=== PATIENT | male | born 1950 | race Caucasian/White ===

== ENCOUNTER 2023-09-15 12:17 | Inpatient (IN) | payer MEDICARE, BC ==
[~2023-09-15] VITALS: Ht 170.2 cm; Wt 90.7 kg
[2023-09-15] MEDS ORDERED: IV NS 0.9% 250 ML IV ONE (12:32)
[2023-09-15] MEDS ORDERED: IOHEXOL-350 100 ML VIAL IV ONE (12:32)
[2023-09-15 12:49] LABS: BASOPHILS # (AUTO) 0.1 K/uL (0.0-0.2); BASOPHILS % (AUTO) 1.1 % (0.0-2.0); EOSINOPHILS # (AUTO) 0.2 K/uL (0.0-0.7); EOSINOPHILS % (AUTO) 2.2 % (0.0-6.0); HEMATOCRIT 40 % (39-51); HEMOGLOBIN 14.2 g/dL (13.5-17.5); LYMPHOCYTES # (AUTO) 0.7 K/uL (0.8-4.8); LYMPHOCYTES % (AUTO) 9.7 % (20.0-44.0); MEAN CORPUSCULAR HEMOGLOBIN 33 PG (26.0-33.0); MEAN CORPUSCULAR HGB CONC 35 g/dl (31.0-36.0); MEAN CORPUSCULAR VOLUME 92 fL (80-96); MONOCYTES # (AUTO) 0.7 K/uL (0.1-1.30); MONOCYTES % (AUTO) 9.9 % (2.0-12.0); NEUTROPHILS # (AUTO) 5.4 K/uL (1.8-8.9); NEUTROPHILS % (AUTO) 77.1 % (43.0-81.0); PLATELET COUNT (AUTO) 235 K/uL (150-450); RED BLOOD CELL COUNT(AUTO) 4.38 MIL/uL (4.5-6.0); RED CELL DISTRIBUTION WIDTH 13.3 % (11.5-15.0)
[2023-09-15 12:58] LABS: CALCIUM, SERUM 8.6 mg/dL (8.5-10.1); CARBON DIOXIDE 30 mmol/L (21-32); CHLORIDE 89 mmol/L (98-107); GLUCOSE 97 mg/dL (74-106); INR 1.11 (0.91-1.10); PARTIAL THROMBOPLASTIN TIME 27.2 SEC (24.3-34.3); POTASSIUM 3.1 mmol/L (3.5-5.1); PROTHROMBIN TIME 11.7 SECS (9.2-11.1); SODIUM SERUM 126 mmol/L (136-145); UREA NITROGEN, BLOOD 14 mg/dL (7-18)
[2023-09-15] MEDS ORDERED: POTASSIUM CHLORIDE 20 MEQ TAB.PRT.SR PO ONE ×2 (13:35→13:36)
[2023-09-15] MEDS: POTASSIUM CHLORIDE 20 MEQ TAB.PRT.SR PO ONE (13:40)
[2023-09-15] MEDS ORDERED: HYDR-4303 PO (13:52)
[2023-09-15] MEDS ORDERED: FLUO20TA28 PO (13:52)
[2023-09-15] MEDS ORDERED: METF-440 PO (13:52)
[2023-09-15] MEDS ORDERED: PROVIGIL PO (13:52)
[2023-09-15] MEDS ORDERED: TESTOSTERONE CYP IM (13:52)
[2023-09-15] MEDS ORDERED: ALFU10TA10 PO (13:52)
[2023-09-15] MEDS ORDERED: AMLO5TAB4 PO (13:52)
[2023-09-15] MEDS ORDERED: ANAS1TAB50 PO (13:52)
[2023-09-15] MEDS ORDERED: NATURE THROID PO (13:52)
[2023-09-15] MEDS ORDERED: IBUP-1957 PO (13:52)
[2023-09-15] MEDS ORDERED: BUPR300T52 PO (13:52)
[2023-09-15] MEDS ORDERED: TADA5TAB2 PO (13:52)
[2023-09-15 14:00] VITALS: O2SAT 98
[2023-09-15 16:00] VITALS: BP 149/88; TEMP 97.7; O2SAT 93
[2023-09-15] MEDS ORDERED: Z GUARD REMEDY 4 OZ OINT TP PRN (19:30)
[2023-09-15] MEDS ORDERED: HYDROCODONE/APAP 5/325MG TABLET PO PRN (19:30)
[2023-09-15] MEDS ORDERED: ACETAMINOPHEN 325 MG TABLET PO PRN (19:30)
[2023-09-15] MEDS ORDERED: ONDANSETRON HCL/PF 4 MG/2 ML VIAL IVP PRN (19:30)
[2023-09-15 20:17] LABS: APPEARANCE,URINE CLEAR (CLEAR); BILIRUBIN,URINE NEGATIVE (NEGATIVE); BLOOD, URINE NEGATIVE Ery/uL (NEGATIVE); COLOR,URINE YELLOW (YELLOW); KETONES,URINE NEGATIVE (NEGATIVE); LEUKOCYTE ESTERASE ,URINE NEGATIVE (NEGATIVE); NITRITE, URINE NEGATIVE (NEGATIVE); PH,URINE 7.5 (5.0-8.0); PROTEIN,URINE NEGATIVE (NEGATIVE); UGLUCOSE NEGATIVE (NEGATIVE); UROBILINOGEN,URINE 0.2 EU/dL (0.2)
[2023-09-15 20:21] LABS: AMPHETAMINE, URINE NEGATIVE (NEGATIVE); BARBITURATE, URINE NEGATIVE (NEGATIVE); BENZODIAZEPINE, URINE NEGATIVE (NEGATIVE); CANNABINOID, URINE NEGATIVE (NEGATIVE); COCCAINE, URINE NEGATIVE (NEGATIVE); PHENCYCLIDINE SCREEN,URINE NEGATIVE (NEGATIVE)
[2023-09-15 20:25] LABS: OPIATE, URINE POSITIVE (NEGATIVE)
[2023-09-15 20:51] VITALS: BP 147/80; TEMP 98.2; O2SAT 96
[2023-09-15] MEDS ORDERED: ENOXAPARIN SODIUM 40 MG/0.4 ML DISP.SYRIN SQ SCH (21:00)
[2023-09-15] MEDS: NYSTATIN (PYXIS) 500,000 UNIT/5 ML ORAL.SUSP PO SCH (21:58)
[2023-09-15] MEDS ORDERED: ENOXAPARIN SODIUM 60 MG/0.6 ML DISP.SYRIN SQ SCH (22:00)
[2023-09-15] MEDS: ENOXAPARIN SODIUM 40 MG/0.4 ML DISP.SYRIN SQ SCH (22:34)
[2023-09-16 00:52] VITALS: BP 122/78; TEMP 97.5; O2SAT 95
[2023-09-16 04:04] VITALS: BP 127/73; TEMP 97.5; O2SAT 93
[2023-09-16 07:30] VITALS: BP 120/74; TEMP 97.7; O2SAT 94
[2023-09-16 07:32] LABS: CALCIUM, SERUM 8.8 mg/dL (8.5-10.1); CREATININE 0.8 mg/dL (0.6-1.3); PHOSPHORUS 3.5 mg/dL (2.5-4.9); POTASSIUM 3.2 mmol/L (3.5-5.1)
[2023-09-16 08:32] LABS: BASOPHILS # (AUTO) 0.1 K/uL (0.0-0.2); EOSINOPHILS # (AUTO) 0.1 K/uL (0.0-0.7); HEMATOCRIT 42 % (39-51); HEMOGLOBIN 15.1 g/dL (13.5-17.5); LYMPHOCYTES % (AUTO) 15.3 % (20.0-44.0); MEAN CORPUSCULAR HEMOGLOBIN 33 PG (26.0-33.0); MEAN CORPUSCULAR HGB CONC 36 g/dl (31.0-36.0); MEAN CORPUSCULAR VOLUME 92 fL (80-96); MONOCYTES # (AUTO) 0.7 K/uL (0.1-1.30); MONOCYTES % (AUTO) 11.1 % (2.0-12.0); NEUTROPHILS # (AUTO) 4.5 K/uL (1.8-8.9); NEUTROPHILS % (AUTO) 70.6 % (43.0-81.0); PLATELET COUNT (AUTO) 261 K/uL (150-450); RED CELL DISTRIBUTION WIDTH 13.5 % (11.5-15.0); WHITE BLOOD COUNT (AUTO) 6.4 K/uL (4.3-11.0)
[2023-09-16] MEDS: METFORMIN 500 MG TABLET PO SCH (09:00)
[2023-09-16] MEDS: MODAFINIL 100 MG TABLET PO SCH (09:00)
[2023-09-16] MEDS: FLUOXETINE HCL 20 MG CAPSULE PO SCH (09:01)
[2023-09-16] MEDS: BUPROPION XL 150 MG TAB.ER.24 PO SCH (09:01)
[2023-09-16] MEDS: ASPIRIN EC 81 MG TABLET.DR PO SCH (09:01)
[2023-09-16] MEDS: HYDROCODONE/APAP 5/325MG TABLET PO SCH (09:01)
[2023-09-16 09:02] VITALS: BP 120/74
[2023-09-16] MEDS: AMLODIPINE BESYLATE 5 MG TABLET PO SCH (09:02)
[2023-09-16] MEDS: POTASSIUM CHLORIDE 20 MEQ TAB.PRT.SR PO SCH (10:04)
[2023-09-16] MEDS ORDERED: NYST5ORA PO (12:12)
[2023-09-16] MEDS ORDERED: ASPI-1420 PO (12:12)
[2023-09-21] MEDS ORDERED: ANASTROZOLE 1 MG TABLET PO SCH (19:30)
== END 2023-09-16 14:00 | disposition home or self-care (01) | DRG 69 ==
LOC: ER 12:19 → TELE 15:06
PROVIDERS: ADMIT Nurse Practitioner Acute Care; ATTEND Nurse Practitioner Acute Care
DX: G45.9 Transient cerebral ischemic attack, unspecified (principal); E87.1 Hypo-osmolality and hyponatremia; B37.0 Candidal stomatitis; E03.9 Hypothyroidism, unspecified; E11.9 Type 2 diabetes mellitus without complications; E78.5 Hyperlipidemia, unspecified; G47.33 Obstructive sleep apnea (adult) (pediatric); I10 Essential (primary) hypertension; E87.6 Hypokalemia; F32.A Depression, unspecified; G89.29 Other chronic pain; K43.9 Ventral hernia without obstruction or gangrene; Z98.1 Arthrodesis status; R47.81 Slurred speech; R91.1 Solitary pulmonary nodule; Z79.84 Long term (current) use of oral hypoglycemic drugs; R29.700 NIHSS score 0; Z20.822 Contact with and (suspected) exposure to COVID-19; N62 Hypertrophy of breast; G43.909 Migraine, unspecified, not intractable, without status migrainosus; T38.7X5A Adverse effect of androgens and anabolic congeners, initial encounter; Z96.652 Presence of left artificial knee joint; J98.01 Acute bronchospasm; Y92.009 Unspecified place in unspecified non-institutional (private) residence as the place of occurrence of the external cause
CPT/HCPCS: 36415; 70450-TC; 70496-TC; 70498-TC; 71045-TC; 80048-TC; 80061-TC; 83735-TC; 84100-TC; 84484-TC; 85025-TC; 85730-TC; 92526; 92611-TC; 93307-TC; 97110-TC; 97112-TC; 97116-TC; 97535-TC; G0378; J1650; J7050; Q9967

== ENCOUNTER 2025-03-20 21:54 | Emergency (ER) | payer MEDICARE, BC ==
[~2025-03-20] VITALS: Ht 170.2 cm; Wt 78.9 kg
[~2025-03-20 21:54] MED LIST: ALFU10TA10 PO; AMLO5TAB4 PO; ANAS1TAB50 PO; ASPI-1420 PO; BUPR300T52 PO; FLUO20TA28 PO; HYDR-4303 PO; METF-440 PO; NATURE THROID PO; NYST5ORA PO; PROVIGIL PO; TADA5TAB2 PO; TESTOSTERONE CYP IM
[2025-03-21] MEDS ORDERED: ONDANSETRON HCL/PF 4 MG/2 ML VIAL ONE ×2 (00:59→03:38)
[2025-03-21] MEDS ORDERED: HYDROMORPHONE 1 MG/1 ML DISP.SYRIN ONE (00:59)
[2025-03-21] MEDS: HYDROMORPHONE 1 MG/1 ML DISP.SYRIN IV ONE (01:23)
[2025-03-21] MEDS: ONDANSETRON HCL/PF - ER 4 MG/2 ML VIAL IV ONE ×2 (01:23→03:59)
[2025-03-21 01:28] LABS: PLATELET COUNT (AUTO) 291 K/uL (150-450); RED BLOOD CELL COUNT(AUTO) 4.74 MIL/uL (4.5-6.0); RED CELL DISTRIBUTION WIDTH 14.2 % (11.5-15.0); WHITE BLOOD COUNT (AUTO) 15.5 K/uL (4.3-11.0)
[2025-03-21 01:45] LABS: CALCIUM, SERUM 9.3 mg/dL (8.5-10.1); CREATININE 1.0 mg/dL (0.6-1.3); SODIUM SERUM 137.0 mmol/L (136-145); UREA NITROGEN, BLOOD 17.0 mg/dL (7-18)
[2025-03-21 01:58] LABS: ASPARTATE AMINOTRANSFERASE 57.0 U/L (15-37); NT-PRO BNP 113.0 pg/mL (0-125); TOTAL PROTEIN, SERUM 7.8 g/dL (6.4-8.2)
[2025-03-21] MEDS ORDERED: METOCLOPRAMIDE HCL 10 MG/2 ML VIAL ONE (03:38)
[2025-03-21] MEDS: METOCLOPRAMIDE HCL 10 MG/2 ML VIAL IV ONE (03:59)
[2025-03-21 04:04] VITALS: BP 132/78; TEMP 98.1; O2SAT 96
== END 2025-03-21 04:05 | disposition home or self-care (01) ==
LOC: ER 21:59
DX: M25.511 Pain in right shoulder (principal); I10 Essential (primary) hypertension; E11.9 Type 2 diabetes mellitus without complications; Z79.82 Long term (current) use of aspirin; Z79.84 Long term (current) use of oral hypoglycemic drugs; Z79.899 Other long term (current) drug therapy; Z88.5 Allergy status to narcotic agent; Z90.49 Acquired absence of other specified parts of digestive tract
CPT/HCPCS: 99285; 96374; 96375; 71045; 93005; 96376; 73030; 85025; 36415; 80053; 84484; 83880; J2765; J2405; J1171